=== PATIENT | male | born 1995 | race Caucasian/White ===

== ENCOUNTER 2022-11-29 21:20 | Emergency (ER) | payer SELFPAY ==
[2022-11-29 21:21] VITALS: BP 181/100; PULSE 110; RESP 18; TEMP 36.6; O2SAT 96; BMI 53.4
[2022-11-29 21:45] VITALS: BP 139/97; PULSE 99; RESP 17
--- NOTE | 2022-11-29 22:00 | EKG12_ITS ---
Test Reason : CP Blood Pressure : / mmHG Vent. Rate : 108 BPM Atrial Rate : 108 BPM P-R Int : 156 ms QRS Dur : 096 ms QT Int : 338 ms P-R-T Axes : 050 057 033 degrees QTc Int : 452 ms Sinus tachycardia Otherwise normal ECG Confirmed by YULISA WASSERMAN, ZAKIA ([id number]), film and video editor VANGIE MUSA ([id number]) on 12/03/2022 12:57:37 PM Referred By: JESSICA Confirmed By:ZAKIA MÁRQUEZ MD
[2022-11-29 22:01] VITALS: BP 122/82; PULSE 100; RESP 19
[2022-11-29 22:02] VITALS: BP 122/82; PULSE 110; RESP 19
[2022-11-29] MEDS: Aspirin 81 MG TAB.CHEW 324 MG PO (22:15)
[2022-11-29 22:16] LABS: Absolute Lymphocyte Count 2.98 X10^3/uL (0.83-4.51); Absolute Neutrophil Count 4.8 X10^3/uL (2.0-7.7); Basophil# 0.06 X10^3/uL; Basophil% 0.7 % (0-1); Eosinophil# 0.28 X10^3/uL; Eosinophils% 3.1 % (0-5); Hematocrit 40.9 % (40-54); Hemoglobin 13.6 g/dL (13.0-16.5); Lymphocyte # 2.98 X10^3/ul (0.83-4.51); Lymphocyte % 33.5 % (19-41); Mean Corp Hgb Conc 33.3 g/dL (32-36); Mean Corpuscular Hgb 29.5 pg (27.0-32.0); Mean Corpuscular Volume 88.7 fL (80-94); Mean Platelet Vol. 9.4 fl (6.2-12.0); Monocyte# 0.73 X10^3/uL; Monocyte% 8.2 % (0-10); NRBC Flagged by Analyzer 0 % (0-5); Neutrophil # 4.79 X10^3/uL (2.7-7.7); Neutrophil % 53.8 % (47-70); Platelet Count 373 K/mm3 (150-450); RBC Distribution Width CV 13.2 % (11.6-14.6); RBC Distribution Width SD 42.6 fl (35.1-43.9); Red Blood Count 4.61 M/mm3 (4.6-6.2); White Blood Count 8.9 K/mm3 (4.4-11.0)
--- NOTE | 2022-11-29 22:18 | RAD_ITS ---
INDICATION: chest pain EXAMINATION/TECHNIQUE: X-RAY - XR Chest 1 View AP portable. 10:18 PM. COMPARISON: FINDINGS: LINES/DEVICES: None. LUNGS: No consolidation. No pneumothorax. MEDIASTINUM: Unremarkable. CARDIAC SILHOUETTE: Appears enlarged, likely exaggerated by portable technique and low lung volumes. BONES AND SOFT TISSUES: No acute abnormalities. RAD/Chest 1 View (Portable) IMPRESSION: Borderline cardiomegaly. No evidence of active intrathoracic disease. Electronically Signed: Clotilde Torres MD at 22:33 EDT ,
[2022-11-29 22:31] LABS: Anion Gap 8 (5-15); BUN 13 mg/dL (7-18); BUN/Creat Ratio 11.7 RATIO (10-20); Calcium,Total 9.1 mg/dL (8.5-10.1); Chloride 107 mmol/L (98-107); Creatinine, Serum 1.11 mg/dL (0.70-1.30); EST Glomerular Filtration Rate 84 mL/min (>60); Est Glom Filt Rate - Afr Amer 102 mL/min (>60); Estimated Creatinine Clearance 90.21 ml/min; Glucose 99 mg/dL (74-106); Potassium 3.6 mmol/L (3.5-5.1); Sodium Level 140 mmol/L (136-145); Troponin-I HS (w/2H Reflex) 4 pg/mL (3.0-78.0)
[2022-11-29 23:00] VITALS: BP 130/81; PULSE 84; RESP 16
--- NOTE | 2022-11-29 23:15 | ED.VIS.CHEST ---
HPI History of Present Illness Chief Complaint: Chest Pain Informant: patient Onset/Context/Timing Onset: Today Activity at onset: sudden Timing: Continuous Quality: Positive for Tightness Location: Substernal and Left Chest Worsened By: Nothing Relieved By: Nothing Associated Symptoms: Positive for Diaphoresis, Dyspnea, Lightheadedness and Palpitations; Negative for Nausea, Vomiting, Cough, Fever or Acid Reflux Narrative Narrative: Patient presents with chest pain that began today. Patient states he was driving into work when he started having some tightness in his chest. Patient states it has been constant. Patient states it started approximately 1 hour prior to arrival. Patient states it is over the left upper chest and substernal area. Patient states nothing makes it better nothing makes it worse. Patient states he was having some shortness of breath and diaphoresis with the pain. Patient states he was also feeling lightheaded and had a feeling of palpitations. Patient denies any nausea or vomiting. Patient denies any cough or fever. CVD Risk Factors: Positive for Smoking; Negative for Hypertension, Diabetes, Hypercholesterolemia or Family History 1' </=55 PE Risk Factors: Negative for Recent Travel/Surgery, Recent Immobilization, Prior DVT or PE, Cancer or OCP + Smoking + >/=35 PFSH PFSH Medical History (Updated 11/30/22 @ 00:[address] Wali Escobedo DO) Achilles rupture, right Achilles tendinitis Hypertension Hypothyroid Allergy/AdvReac Type Severity Reaction Status Date / Time iodine Allergy Severe Hives Verified 11/29/22 21:24 bee venom protein (honey bee) Allergy Intermediate Anaphylaxis Verified 11/29/22 21:24 cetirizine [From [facility]] Allergy Intermediate Hives Verified 11/29/22 21:24 Surgical History (Updated 11/29/22 @ 23:[address] Wali Escobedo DO) Hx of Achilles tendon repair Social History Smoking Status: Current every day smoker tobacco type: e-cigarettes ROS ROS ED Constitutional Constitutional ED: Denies chills or fever(s) Eyes Eyes: Denies blurry vision or change in vision ENT ENT ED: Reports rhinorrhea; Denies sore throat Cardiovascular Cardiovascular: Reports chest pain and palpitations Respiratory/Chest Respiratory/Chest: Reports dyspnea; Denies cough Gastrointestinal Gastrointestinal: Denies abdominal pain, nausea or vomiting Genitourinary Genitourinary ED: Denies dysuria or hematuria Musculoskeletal Musculoskeletal: Reports back pain; Denies neck pain Integumentary Denies abscess or rash Neurologic Neurologic: Reports headache(s); Denies weakness Allergic/Immunologic Allergic/Immunologic ED: Denies mouth swelling or urticaria EXAM Physical Exam Const Vital Signs: 11/29/22 21:21 11/29/22 22:02 11/29/22 22:22 Temperature 97.9 F Temperature Source Temporal Pulse Rate 110 H 110 H Respiratory Rate 18 19 H Blood Pressure 181/100 H 122/82 H Blood Pressure Mean 127 95 Pulse Ox 96 Oxygen Delivery Method Room Air Room Air Room Air Positive well nourished, well developed and obese General Appearance ED: well developed and NAD Nutritional Appearance: obese HEENT normocephalic and atraumatic Eyes PERRL and EOMs intact bilaterally Neck supple and no JVD Chest Wall Chest Narrative: There is tenderness over the left upper chest. There is no bony crepitance or step-off. There is no edema or ecchymosis. There is no subcutaneous emphysema noted. Resp normal respiratory effort and clear to auscultation bilaterally Effort and Inspection: Negative for respiratory distress Cardio regular rate, regular rhythm and no murmurs GI normal to inspection, nondistended, normoactive bowel sounds, soft to palpation, non-tender and non-distended Extremity normal to inspection General Extremety ED: Negative for edema or tenderness General Extremity: Negative for edema Neuro oriented x3, CN's II-XII intact bilaterally and no sensory deficits noted Sensorium / Orientation: awake and alert Motor Exam: strength 5/5 throughout Psych mental status grossly normal Heart Score History: Slightly/Non-Suspicious ECG: Normal Age: </= 45 years Risk Factors: 1 or 2 Risk Factors Troponin: </= Normal Limit Score: 1 MDM MDM MDM Narrative Medical decision making narrative: Differential diagnosis includes cardiac dysrhythmia, cardiac ischemia, pneumonia, pneumothorax, electrolyte abnormality, anxiety, and musculoskeletal pain. Patient has a Wells score of 1.5. I do not feel this is from a pulmonary embolism. EKG will be obtained to assess for cardiac dysrhythmia and cardiac ischemia. Chest x-ray will be obtained to assess for pneumonia and pneumothorax. CBC will be obtained to assess for leukocytosis and anemia. Basic metabolic profile will be obtained to assess for electrolyte abnormality and renal function. High-sensitivity troponin will be obtained to assess for cardiac ischemia. 2-hour repeat high-sensitivity troponin will be obtained to assess for ongoing cardiac ischemia. Lab Data Attestation: I reviewed the patient's lab results. Lab results narrative: CBC was reviewed and was within normal limits. Basic metabolic profile was reviewed and was within normal limits. High-sensitivity troponin was reviewed and was normal at 4. 2-hour repeat troponin was reviewed and was also normal at 4. Labs: Laboratory Results - last 24 hr 11/29/22 11/30/22 21:37 00:15 WBC 8.9 RBC 4.61 Hgb 13.6 Hct 40.9 MCV 88.7 MCH 29.5 MCHC 33.3 RDW Std Deviation 42.6 RDW Coeff of Luis Armando 13.2 Plt Count 373 MPV 9.4 Immature Gran % (Auto) 0.700 Neut % (Auto) 53.8 Lymph % (Auto) 33.5 [place] % (Auto) 8.2 Eos % (Auto) 3.1 Baso % (Auto) 0.7 Absolute Neuts (auto) 4.8 Absolute Lymphs (auto) 2.98 Nucleated RBC % 0 Sodium 140 Potassium 3.6 Chloride 107 Carbon Dioxide 25.0 Anion Gap 8 BUN 13 Creatinine 1.11 Estim Creat Clear Calc 90.21 Est GFR (MDRD) Af Amer 102 Est GFR (MDRD) Non-Af 84 BUN/Creatinine Ratio 11.7 Glucose 99 Calcium 9.1 Troponin I High Sens 4 4 Radiography Chest X-Ray - ED: 1 View, Read by ED Physician, Read by Radiologist and No Acute Disease Diagnostic Testing: Clinical Impression(s) from Imaging Studies Chest X-Ray 11/29/22 22:18 IMPRESSION: Borderline cardiomegaly. No evidence of active intrathoracic disease. Electronically Signed: Clotilde Torres MD at 22:33 EDT , Portable 1 view chest x-ray was obtained. On my independent interpretation, lung hurley are clear. There is border line cardiomegaly. Bony thorax is normal. There is no acute process noted. Radiologist also interpreted the x-ray and agrees. EKG Initial EKG: Attestation: I personally reviewed and interpreted this EKG as follows: Interpretation: No Acute Injury Pattern and Sinus Tachycardia (108) Comments: EKG was obtained. On my independent interpretation, it showed a sinus tachycardia with a rate of 108. MN interval, QRS interval, and QTc intervals were all normal. [place] was normal. There are no acute ST or T wave changes. Treatment and Re-Evaluation :: Patient was given aspirin. Patient was advised of his findings. Patient has a HEART score of 1. Patient was advised that this is low risk for acute cardiac event. Patient was instructed to follow-up with his primary care physician in 5 to 7 days for further evaluation. Patient understood and was agreeable with the plan. All questions were answered. Discharge Plan Triage Chief Complaint: Chest Pain ED Provider: Wali Escobedo Dx/Rx/DC Orders Clinical Impression: Elevated blood pressure reading, Chest pain of uncertain etiology Instructions: ED Chest Pain, Uncertain Cause Primary Care Provider: Litzy Knight Referrals: Litzy Knight MD [Primary Care Provider] - 5-7 Days Disposition Disposition: Home, Self Care
[2022-11-30] VITALS: BP 130/81; PULSE 94; RESP 23
[2022-11-30 00:03] LABS: Reflex Troponin-HS? (from REC) Y
[2022-11-30 00:41] LABS: Troponin-I HS 4 pg/mL (3.0-78.0)
[2022-11-30 01:00] VITALS: BP 148/98; PULSE 89; RESP 16
== END 2022-11-30 01:10 | disposition home or self-care (01) ==
PROVIDERS: Emergency Provider Emergency Medicine; PCP Internal Medicine; Visit Provider Emergency Medicine
DX: R07.9 Chest pain, unspecified (principal); R06.00 Dyspnea, unspecified; F17.290 Nicotine dependence, other tobacco product, uncomplicated; R00.2 Palpitations; R03.0 Elevated blood-pressure reading, without diagnosis of hypertension; E66.9 Obesity, unspecified
CPT/HCPCS: 71045; 80048; 84484; 85025; 93005; 99284; A4216

== ENCOUNTER 2023-01-11 00:08 | Emergency (ER) | payer OTHER, SELFPAY ==
[2023-01-11 00:09] VITALS: BP 161/96; PULSE 99; RESP 15; TEMP 36.5; O2SAT 97; BMI 52.7
--- NOTE | 2023-01-11 00:53 | EKG12_ITS ---
Test Reason : Dysrhythmia Blood Pressure : / mmHG Vent. Rate : 097 BPM Atrial Rate : 097 BPM P-R Int : 160 ms QRS Dur : 096 ms QT Int : 358 ms P-R-T Axes : 056 057 043 degrees QTc Int : 454 ms Normal sinus rhythm Normal ECG Confirmed by DYLAN WASSERMAN, HANNAH ([id number]), writer editor BEV SOTOMAYOR ([id number]) on 01/14/2023 8:33:40 AM Referred By: Ramos Confirmed By:YOLIS RICHARDSON MD
--- NOTE | 2023-01-11 00:53 | EX.ED.DYSGE1 ---
HPI History of Present Illness Chief Complaint: General Illness Narrative Narrative: 27-year-old male past medical history of migraine headaches presents after syncopal episode today that he had at work. He states he has been feeling generally weak all day. He had a few episodes of nausea and vomiting this morning which resolved. No diarrhea, no fevers or chills, no dysuria or hematuria. He states that while he was at work he went to the bathroom and had a bowel movement, and reportedly had a syncopal episode for 10 minutes. He states that someone knocked on the door because they were looking for him because he had been gone for a while. He denies any prodromal chest pain or shortness of breath, to states he feels generally weak. [facility] Medical History Achilles rupture, right Achilles tendinitis Hypertension Hypothyroid Home Medications NK 11/30/22 [History Last Taken Unknown] Allergy/AdvReac Type Severity Reaction Status Date / Time iodine Allergy Severe Hives Verified 01/11/23 00:14 bee venom protein (honey bee) Allergy Intermediate Anaphylaxis Verified 01/11/23 00:14 [facility] Allergy Intermediate Hives Verified 01/11/23 00:14 Surgical History Hx of Achilles tendon repair Social History Smoking Status: Current every day smoker tobacco type: e-cigarettes ROS ROS ED ROS Narrative Constitutional: No fever, no chills. Generalized weakness HEENT: No sore throat. No neck pain. No loss of vision. No rhinorrhea. Cardiovascular: No chest pain. No palpitations. No pedal edema. Respiratory: No cough, no shortness of breath. Abdominal: No abdominal pain. Nausea and vomiting this morning, resolved. No diarrhea. Genitourinary: No dysuria. No hematuria. Musculoskeletal: No myalgias. No arthralgias. Neurologic: Positive headaches with history of migraine. No dizziness. No lightheadedness. Generalized weakness. Reported syncopal episode x 10 minutes. Skin: No rash. No change in color. Psychiatric: No depression. No anxiety. EXAM Physical Exam Narrative Exam Narrative: Afebrile. Vital signs noted. HEENT: Normocephalic. Atraumatic. PERRL, EOMI. Neck soft and supple. No point tenderness or step off. Cardiovascular: Regular rate and rhythm. No murmurs, rubs, or gallops appreciated. Respiratory: No tachypnea. Lungs clear to auscultation bilaterally. Gastrointestinal: Abdomen soft, nontender, obese, with normoactive bowel sounds. No rebound or guarding. Neurological: Awake. Alert. Nonfocal, nonlateralizing. Skin: Normal color. No pallor. Musculoskeletal: No pedal edema. Full range of motion extremities. Const Vital Signs: 01/11/23 00:09 01/11/23 01:12 01/11/23 02:00 Temperature 97.7 F L Temperature Source Temporal Pulse Rate 99 73 Respiratory Rate 15 14 Respiratory Effort Normal Non-Labored Respiratory Pattern Normal Blood Pressure 161/96 H 143/79 H Blood Pressure Mean 117 100 Pulse Ox 97 98 Oxygen Delivery Method Room Air Room Air MDM MDM MDM Narrative Medical decision making narrative: In the differential diagnosis is dehydration versus cardiac syncope. He may have had a vasovagal episode after having a bowel movement. EKG will be obtained along with basic laboratory work. He will be bolused normal saline 1 L intravenously. I do not feel a troponin is indicated. I will check a UA to also look for signs of dehydration including ketones in his urine. I interpreted the patient's EKG that was obtained as normal sinus rhythm at 97 bpm without ectopy or acute ST changes. No STEMI. QTc is normal at 454 ms. I reviewed his laboratory work and he has a normal white count of 9.5, hemoglobin normal at 13.6, normal platelet count of 393. His electrolyte panel shows chloride slightly elevated at 110 but normal sodium of 142, potassium normal at 3.6. Glucose is appropriately elevated at 87, and he has a normal anion gap of 7, no dehydration with a normal BUN of 13 and creatinine 1.0. I reviewed his urinalysis and there is no evidence of ketones or infection. Upon repeat examination at approximately 2:55 AM, he is resting comfortably on the cot, using his cellular telephone/smart phone. At this point in time, I feel he can be discharged safely home with follow-up. I do not feel he requires observation or antibiotics. While I am unsure as to the cause of his reported syncopal episode, and his generalized weakness, I feel he can follow-up with his primary care provider. Return instructions to the emergency department were reviewed. Disposition is discharged home in stable condition. History & Record Review Discussion w/independent historian: Patient Additional record(s) reviewed:: Prior ED visit Lab Data Attestation: I reviewed the patient's lab results. Labs: Laboratory Results - last 24 hr 01/11/23 01/11/23 00:58 02:30 WBC 9.5 RBC 4.52 L Hgb 13.6 Hct 40.5 MCV 89.6 MCH 30.1 MCHC 33.6 RDW Std Deviation 42.5 RDW Coeff of Luis Armando 13.0 Plt Count 393 MPV 9.1 Immature Gran % (Auto) 0.700 Neut % (Auto) 61.1 Lymph % (Auto) 27.3 [place] % (Auto) 7.0 Eos % (Auto) 3.2 Baso % (Auto) 0.7 Absolute Neuts (auto) 5.8 Absolute Lymphs (auto) 2.60 Nucleated RBC % 0 Sodium 142 Potassium 3.6 Chloride 110 H Carbon Dioxide 25.0 Anion Gap 7 BUN 13 Creatinine 1.01 Estim Creat Clear Calc 102.71 Est GFR (MDRD) Af Amer 114 Est GFR (MDRD) Non-Af 94 BUN/Creatinine Ratio 12.9 Glucose 87 Calcium 9.1 Total Bilirubin 0.50 AST 15 ALT 33 Alkaline Phosphatase 89 Total Protein 7.4 Albumin 3.5 Globulin 3.9 Albumin/Globulin Ratio 0.9 Urine Color Yellow Urine Clarity Clear Urine pH 6.5 Ur Specific [place] 1.015 Urine Protein Negative Urine Glucose (UA) Normal Urine Ketones Negative Urine Occult Blood Negative Urine Nitrite Negative Urine Bilirubin Negative Urine Urobilinogen Normal Ur Leukocyte Esterase Negative Urine RBC 0 SEEN Urine WBC 0 SEEN Ur Squamous Epith Cells 0 SEEN Urine Bacteria 0 SEEN Urine Mucus 0 SEEN Discharge Plan Triage Chief Complaint: General Illness ED Provider: Davy Beasley Dx/Rx/DC Orders Clinical Impression: Generalized weakness, Syncope Instructions: ED Fainting, Uncertain Cause, ED Weakness (Uncertain Cause) Prescriptions: No Action NK Stand Alone Forms: ED Work / School Excuse Primary Care Provider: Litzy Knight Referrals: Litzy Knight MD [Primary Care Provider] - 3-5 Days if not improving Disposition Disposition: Home, Self Care
[2023-01-11 01:10] LABS: Absolute Neutrophil Count 5.8 X10^3/uL (2.0-7.7); Basophil# 0.07 X10^3/uL; Basophil% 0.7 % (0-1); Eosinophils% 3.2 % (0-5); Hematocrit 40.5 % (40-54); Hemoglobin 13.6 g/dL (13.0-16.5); Lymphocyte % 27.3 % (19-41); Mean Corp Hgb Conc 33.6 g/dL (32-36); Mean Corpuscular Hgb 30.1 pg (27.0-32.0); Mean Corpuscular Volume 89.6 fL (80-94); Mean Platelet Vol. 9.1 fl (6.2-12.0); Monocyte# 0.67 X10^3/uL; NRBC Flagged by Analyzer 0 % (0-5); Neutrophil % 61.1 % (47-70); Platelet Count 393 K/mm3 (150-450); RBC Distribution Width SD 42.5 fl (35.1-43.9); Red Blood Count 4.52 M/mm3 (4.6-6.2); White Blood Count 9.5 K/mm3 (4.4-11.0)
--- NOTE | 2023-01-11 01:10 | NURSING ---
bed bugs found and captured. decontamination policy followed. Charge nurse aware. Pt aware of findings.
[2023-01-11] MEDS: 0.9% Normal Saline 1,000 ML 1000 ML IV (01:21)
[2023-01-11 01:32] LABS: ALB/GLOB Ratio 0.9 RATIO (0.9-2.4); AST(SGOT) 15 U/L (15-37); Alanine Aminotransfer ALT/SGPT 33 U/L (16-61); Albumin, Serum 3.5 g/dL (3.2-5.0); Alkaline Phosphatase 89 U/L (45-117); Anion Gap 7 (5-15); BUN 13 mg/dL (7-18); BUN/Creat Ratio 12.9 RATIO (10-20); Calcium,Total 9.1 mg/dL (8.5-10.1); Chloride 110 mmol/L (98-107); Creatinine, Serum 1.01 mg/dL (0.70-1.30); EST Glomerular Filtration Rate 94 mL/min (>60); Est Glom Filt Rate - Afr Amer 114 mL/min (>60); Estimated Creatinine Clearance 102.71 ml/min; Globulin 3.9 g/dL (2.2-4.2); Glucose 87 mg/dL (74-106); Potassium 3.6 mmol/L (3.5-5.1); Protein, Total 7.4 g/dL (6.4-8.2); Sodium Level 142 mmol/L (136-145)
[2023-01-11] MEDS: Ketorolac 30 MG/ML Syringe IV (01:59)
[2023-01-11 02:00] VITALS: BP 143/79; PULSE 73; RESP 14; O2SAT 98
[2023-01-11 02:36] LABS: Bacteria 0 SEEN /hpf (None Seen); Mucous, Urine 0 SEEN /hpf (<or=2+); Red Blood Cells-Urine 0 SEEN /hpf (0-5); Squamous Epithelial Cells - UA 0 SEEN /hpf (0-5); White Blood Cells 0 SEEN /hpf (0-5)
[2023-01-11 02:37] LABS: Color, Urine Yellow (Yellow); Glucose, Dipstick Normal (Normal); Ketone-Dipstick Negative (Negative); Leukocyte Esterase-Dipstick Negative /ul (Negative); Nitrite-Dipstick Negative (Negative); Occult Blood-Urine Negative /ul (Negative); Protein-Dipstick Negative (Negative); Specific Gravity, Urine 1.015 (1.002-1.030); Urine Bilirubin Dipstick Negative (Negative); Urine Clarity Clear (Clear); Urine Urobilinogen Normal (Normal); Urine pH 6.5 (5.0 - 8.0)
[2023-01-11 03:04] VITALS: BP 144/95; PULSE 92; RESP 21; O2SAT 96
== END 2023-01-11 03:13 | disposition home or self-care (01) ==
PROVIDERS: Emergency Provider Emergency Medicine; PCP Internal Medicine; Visit Provider Emergency Medicine
DX: R55 Syncope and collapse (principal); F17.290 Nicotine dependence, other tobacco product, uncomplicated; I10 Essential (primary) hypertension; R51.9 Headache, unspecified; R53.1 Weakness
CPT/HCPCS: 80053; 81001; 85025; 93005; 96361; 96374; 99283; J7030; A4216